=== PATIENT | male | born 1985 | race Caucasian/White ===

== ENCOUNTER 2023-08-09 17:19 | Emergency (ER) | payer OTHER, SELFPAY ==
[2023-08-09 17:51] VITALS: BP 141/89; PULSE 84; RESP 18; TEMP 37.4; O2SAT 95
[2023-08-09 18:45] VITALS: PULSE 83; O2SAT 96
[2023-08-09 19:00] VITALS: PULSE 82; O2SAT 95
[2023-08-09 19:02] VITALS: BP 149/83
[2023-08-09 19:05] LABS: Basophils Absolute Auto 0.03 K/uL (0.00-0.30); Basophils Percent Auto 0.6 % (0.0-3.0); Eosinophils Absolute Auto 0.19 K/uL (0.00-0.50); Eosinophils Percent Auto 3.7 % (0.0-7.0); Hematocrit 47.9 % (37.0-53.0); Hemoglobin* 15.3 gm/dL (13.5-17.5); Immature Granulocytes Abs Auto 0.03 K/uL (0.00-0.30); Immature Granulocytes Pct Auto 0.6 %; Lymphocytes Absolute Auto 1.33 K/uL (0.90-2.90); Lymphocytes Percent Auto 26.1 % (20-44); Mean Corpuscular HGB Conc 32 gm/dL (32-36); Mean Corpuscular Hemoglobin 31 pg (26-34); Mean Corpuscular Volume 98 fL (80-100); Monocytes Percent Auto 11.6 % (0.0-11.0); Neutrophils Absolute Auto 2.93 K/uL (1.7-7.0); Neutrophils Percent Auto 57.4 % (42.0-72.0); Platelet Count* 144 K/uL (140-440); RDW Coefficient of Variation % 13.1 % (11.5-15.5)
[2023-08-09 19:09] VITALS: PULSE 88; O2SAT 95
[2023-08-09 19:15] VITALS: PULSE 82; O2SAT 96
[2023-08-09 19:17] LABS: Albumin* 4.3 g/dL (3.3-5.0); Slide Review Reflex No
[2023-08-09 19:18] LABS: Chloride* 104 mmol/L (96-114); Sodium* 140 mmol/L (135-149)
[2023-08-09 19:20] LABS: Anion Gap 7 mEq/L (7-15); Aspartate Amino Transferase* 101 U/L (12-35); Bilirubin Total* 0.7 mg/dL (0.1-1.5); Carbon Dioxide* 29 mmol/L (20-32); Creatinine* 0.9 mg/dL (0.5-1.5); Estimated Glomerular Filt Rate 111 ml/min
[2023-08-09 19:21] LABS: Alanine Aminotransferase* 127 U/L (4-50); Alkaline Phosphatase* 74 U/L (40-150); Blood Urea Nitrogen* 17 mg/dL (5-24); Calcium* 8.8 mg/dL (8.4-10.6); Glucose* 72 mg/dL (60-115); Magnesium* 1.7 mg/dL (1.5-2.6); Total Protein* 7.3 g/dL (6.0-8.3)
[2023-08-09] MEDS: IPRAT-ALBUT 0.5-2.5 MG/3 ML NEB 1 NEB IH (19:26)
[2023-08-09 19:35] LABS: D Dimer Quantitative* < 0.27 ug/ml (0.00-0.50); NT Pro B Type NatriureticPept* 103 pg/mL; Troponin I* < 0.01 ng/mL (0.01-0.04)
--- NOTE | 2023-08-09 19:37 | CRLHL7_ITS ---
For Patients: As a result of the Century Cures Act, medical imaging exams and procedure reports are released immediately into your electronic medical record. You may view this report before your referring provider. If you have questions, please contact your health care provider. INDICATION: Shortness of breath TECHNIQUE: CT chest without contrast. COMPARISON: None FINDINGS: Cardiovascular structures: Heart size is normal. Coronary artery calcifications. Thoracic aorta and main pulmonary artery are normal in caliber. Mediastinum and avery: No sign of mass. There are shotty mediastinal lymph nodes, none technically enlarged. Lungs: Small focus of patchy opacity in the right upper lobe. Dependent atelectasis at the left lung base. 5 mm pulmonary nodule in the right costophrenic angle, best seen on image 59 series 4. Pleura and pericardium: No effusions. Chest wall and axilla: 1.2 cm right axillary lymph node. 1.0 cm left axillary lymph node. Upper abdomen: Unremarkable. Bones: No significant findings. IMPRESSION: Patchy atelectasis or infiltrate in the right upper lobe. 5 mm pulmonary nodule in the right costophrenic angle. Recommend follow-up per Fleischner society guidelines. Coronary artery disease. Bilateral axillary adenopathy of unknown etiology. Please note that all CT scans at this facility use dose modulation, iterative reconstruction, and/or weight-based dosing when appropriate to reduce radiation dose to as low as reasonably achievable. Dictated by Judy Gilmore MD @ 08/09/2023 8:47:40 PM (Electronically Signed)
[2023-08-09 19:46] LABS: PCR FLU A Negative PCR FLU A (Negative); PCR FLU B Negative PCR FLU B (Negative); PCR RSV Negative PCR RSV (Negative); SARS PCR* Negative SARS-CoV-2 (Negative)
[2023-08-09] MEDS: ALBUTEROL SULFATE 2.5 MG/3 ML VIAL.NEB 5 MG NEB (20:20)
--- NOTE | 2023-08-09 20:53 | ED.SOB ---
HPI - SOB/Dyspnea General Date Seen: 08/09/23 Chief Complaint: Shortness of Breath/Dyspnea Stated Complaint: Short of breath, low O2 levels Time Seen by Provider: 08/09/23 18:37 Source: patient Mode of arrival: ambulatory Limitations: no limitations History of Present Illness HPI Narrative: Patient is a 38-year-old male presenting worse prefer shortness of breath. States symptoms have been going on for the past few days. He had a clinic appointment today for the symptoms and they were concerned post chest x-ray in fact he was desatting on room air while exerting himself so he was sent to the emergency department. Patient is satting 96-98% on room air while sitting in his bed at this time. He states he has been having feeling warm but no fevers. Has not had a fever in our emergency department. Does state he feels short of breath and possibly felt like this he was admitted for pneumonia. He states that they start him on antibiotics for that he was told was viral in your cyst given oxygen. States he fully recovered from it. Has some mild chest discomfort a states worse when he coughs. No history of cancer or leg swelling. Denies weakness, numbness, headache, vision changes, diarrhea, constipation. Related Data Previous Rx's Medication Instructions Recorded albuterol sulfate 2.5 mg/0.5 mL 5 mg inhalation Q4H #30 ea 08/09/23 solution for nebulization albuterol sulfate 90 mcg/actuation 2 puff inhalation QID #8.5 grams 08/09/23 aerosol inhaler Review of Systems Status of ROS: Reports: 10 or more systems reviewed and unremarkable except as noted in History and below PFSH PFS Social History Smoking Status: Never smoker How often do you have a drink containing alcohol: 4 or more times a week How many standard drinks containing alcohol do you have on a typical day: 3 or 4 How often do you have six or more drinks on one occasion: Never AUDIT-C Alcohol total score: 5 Non-prescribed substance use: denies use Exam Narrative: Exam Narrative: Const: Well-nourished, Well-developed, in mild distress Eyes: PERRL, no conjunctival injection, and symmetrical lids HENT: Atraumatic external nose and ears. Moist mucous membranes. Neck: Symmetric, trachea midline, No thyromegaly. CVS: RRR, No murmurs or gallops. Peripheral pulses 2+ and equal in all extremities RESP: Unlabored respiratory effort. Diffuse mild wheezing. GI: Nontender/Nondistended, No rebound or guarding. MSK:Extremities w/o deformity, Normal Active ROM Skin: Warm, Dry. No rashes or lesions. Neuro: Normal Muscle tone, No focal neurological deficits. Psych: Awake, Alert, & Oriented x3. Appropriate mood and affect. Const: Vital Signs, click to edit/add: Vital Signs - 24 hr 08/09/23 17:51 08/09/23 18:45 08/09/23 19:00 Temperature 99.3 F Pulse Rate 83 82 Pulse Rate [Pulse Oximeter] 84 Respiratory Rate 18 Blood Pressure Blood Pressure [Ri ght Forearm] 141/89 H Pulse Oximetry 95 96 95 Oxygen Delivery Me thod Room Air 08/09/23 19:02 08/09/23 19:09 08/09/23 19:15 Temperature Pulse Rate 88 82 Pulse Rate [Pulse Oximeter] Respiratory Rate Blood Pressure 149/83 H Blood Pressure [Ri ght Forearm] Pulse Oximetry 95 96 Oxygen Delivery Me thod Course Vital Signs Vital signs: Initial Vital Signs Temperature 99.3 F 08/09/23 17:51 Temperature Source Temporal Artery Scan 08/09/23 17:51 Pulse Rate 84 08/09/23 17:51 Pulse Rhythm Regular 08/09/23 17:51 Respiratory Rate 18 08/09/23 17:51 Blood Pressure 141/89 H 08/09/23 17:51 Blood Pressure Mean 106 H 08/09/23 17:51 Blood Pressure Position Sitting 08/09/23 17:51 Pulse Oximetry 95 08/09/23 17:51 Oxygen Delivery Method Room Air 08/09/23 17:51 Vital Signs Temperature 99.3 F 08/09/23 17:51 Pulse Rate 84 08/09/23 17:51 Respiratory Rate 18 08/09/23 17:51 Blood Pressure 141/89 H 08/09/23 17:51 Pulse Oximetry 95 08/09/23 17:51 Oxygen Delivery Method Room Air 08/09/23 17:51 Temperature 99.3 F 08/09/23 17:51 Pulse Rate 82 08/09/23 19:15 Respiratory Rate 18 08/09/23 17:51 Blood Pressure 149/83 H 08/09/23 19:02 Pulse Oximetry 96 08/09/23 19:15 Oxygen Delivery Method Room Air 08/09/23 17:51 MDM - SOB/Dyspnea MDM Narrative Medical decision making narrative: Patient is a 38-year-old male presented emergency department with shortness of breath. He has no history of COPD and has never smoked. Has symptoms like this previously flare was viral pneumonia. Was sent in by the clinic for concern appearance of his chest x-ray. He is having some chest pain. Discussed heart score is 1 at this time. No bony was within normal limits. It is while he was satting well on room air here considering the reason he was sent we will do a D-dimer to check for signs of a blood clot. Also ordered a BNP, CBC, magnesium, CMP, coag/flu/RSV. Lab work all returned showing no concerning abnormalities. His AST and ALT are slightly elevated mother not to a concerning level. Alk-phos and bilirubin are within normal limits. This is something he can follow up with outpatient. Troponin within normal limits. BNP within normal limits. Coags his flu/RSV is negative. He was given a DuoNeb treatment and then albuterol treatment. After this he states he was feeling much better and is able to ambulate to bathroom without getting short of breath. He states before that he would get short of breath just walking a few steps. States his baseline is female walk as much as possible without getting short of breath. Says there was a concerning chest x-ray after his clinic visit we did go straight to a chest CT. The CT results showed a small patchy infiltrate in the left upper lobe. Considering his appearance is probably viral but since we are going to discharge him home we will start him on amoxicillin. He is agreeable gone home and says he would like to go home to sleep. Since the breathing treatments did help we will give him prescriptions for an albuterol nebulizer and inhaler. He was given written prescription for the nebulizer machine and inhaler spacer. Lab Data Labs: Lab Results 08/09/23 Range/Units 18:40 WBC 5.10 (4.50-11.00) K/uL RBC 4.90 (4.30-5.90) m/uL Hgb 15.3 (13.5-17.5) gm/dL Hct 47.9 (37.0-53.0) % MCV 98 (80-100) fL MCH 31 (26-34) pg MCHC 32 (32-36) gm/dL RDW Coeff of Mary 13.1 (11.5-15.5) % Plt Count 144 (140-440) K/uL Neut % (Auto) 57.4 (42.0-72.0) % Lymph % (Auto) 26.1 (20-44) % [place] % (Auto) 11.6 H (0.0-11.0) % Eos % (Auto) 3.7 (0.0-7.0) % Baso % (Auto) 0.6 (0.0-3.0) % Neut # (Auto) 2.93 (1.7-7.0) K/uL Lymph # (Auto) 1.33 (0.90-2.90) K/uL [place] # (Auto) 0.60 (0.00-0.90) K/UL Eos # (Auto) 0.19 (0.00-0.50) K/uL Baso # (Auto) 0.03 (0.00-0.30) K/uL Abs Immat Gran (auto) 0.03 (0.00-0.30) K/uL Imm/Tot Granulo (auto) 0.6 % D-Dimer Quant (PE/DVT) < 0.27 (0.00-0.50) ug/ml Sodium 140 (135-149) mmol/L Potassium 4.0 (3.6-5.1) mmol/L Chloride 104 (96-114) mmol/L Carbon Dioxide 29 (20-32) mmol/L Anion Gap 7 (7-15) mEq/L BUN 17 (5-24) mg/dL Creatinine 0.9 (0.5-1.5) mg/dL Estimated GFR 111 ml/min Glucose 72 (60-115) mg/dL Calcium 8.8 (8.4-10.6) mg/dL Magnesium 1.7 (1.5-2.6) mg/dL Total Bilirubin 0.7 (0.1-1.5) mg/dL AST 101 H (12-35) U/L ALT 127 H (4-50) U/L Alkaline Phosphatase 74 (40-150) U/L Troponin I < 0.01 L (0.01-0.04) ng/mL NT-Pro-B Natriuret Pep 103 pg/mL Total Protein 7.3 (6.0-8.3) g/dL Albumin 4.3 (3.3-5.0) g/dL SARS-CoV-2 (PCR) Negative SARS-CoV-2 (Negative) Influenza Type A (PCR) Negative PCR FLU A (Negative) Influenza Type B (PCR) Negative PCR FLU B (Negative) RSV (PCR) Negative PCR RSV (Negative) ECG Data Attestation: I personally reviewed and interpreted this ECG as follows: Prior ECG tracings: not available for review Interpretation: Normal sinus rhythm, normal intervals, normal axis, no ST or T-wave abnormalities. Heart rate of 80 beats per minute Discharge Plan Discharge Clinical Impression: Pneumonia Qualifiers: Pneumonia type: due to unspecified organism Laterality: left Lung location: upper lobe of lung Qualified Code(s): J18.9 - Pneumonia, unspecified organism Patient Disposition: Home, Self-Care Condition: Improved Instructions: Pneumonia (ED) Additional Instructions: Well it appears your pneumonia is most likely viral since we will discharge to home I am going to put you on antibiotics for precautionary reasons. We will give you prescription for an inhaler and nebulizer treatment. The nebulizer machine prescription is written prescription as not all pharmacies have them. He can bring that prescription to any pharmacy Prescriptions: New albuterol sulfate 2.5 mg/0.5 mL solution for nebulization 5 mg inhalation Q4H Qty: 30 0RF albuterol sulfate 90 mcg/actuation HFA aerosol inhaler 2 puff inhalation QID Qty: 8.5 2RF Follow Up/Referrals: Ronald Pierre MD [Primary Care Provider] - Stand Alone Forms: [facility] Info Instructions
--- NOTE | 2023-08-10 10:14 | ED.NURSE ---
[facility] called to change the form from capsules to nebulizer if ok to do that and agreed it is.
== END 2023-08-09 21:20 | disposition home or self-care (01) ==
PROVIDERS: Emergency Provider Student in an Organized Health Care Education/Training Program; PCP Family Medicine
DX: J18.9 Pneumonia, unspecified organism (principal)
CPT/HCPCS: 36415; 71250; 80053; 83735; 83880; 84484; 85025; 85379; 87631; 93005; 94640; 99283; 99284; 99285